=== PATIENT | male | born 1965 | race American Indian/Alaskan Native ===

== ENCOUNTER 2020-05-08 15:02 | Emergency (ER) | payer MEDICARE, OTHER ==
[~2020-05-08] VITALS: Ht 170.2 cm; Wt 83.9 kg
== END 2020-05-08 21:52 | disposition home or self-care (01) ==
LOC: ER 15:02
DX: R51.9 Headache, unspecified (principal); R53.1 Weakness; R20.2 Paresthesia of skin; F17.200 Nicotine dependence, unspecified, uncomplicated
CPT/HCPCS: 96372-59; 96374; 96375; 99284-25; J1885; J2765; Q0163